=== PATIENT | female | born 1995 ===

== ENCOUNTER 2018-01-09 11:46 | Emergency (ER) | payer OTHER ==
[2018-01-09 12:19] VITALS: RESP 20
--- NOTE | 2018-01-09 12:50 | C.PDOC ---
History Of Present Illness 22 year old female presents to the ER with a complaint of recurring right sided lower back pain for one week with radiation to the right groin. Patient is s/p outpatient US with PMD, patient states "he saw stones in my kidney" and referred him to the ER for CT. Patient reports she had similar symptoms on 12/02 that resolved on their own. Denies UTI symptoms or other associated symptoms. RECUR R LOWER BACK PAIN X 1 WEEK. RADIATION R GROIN. S/P OUTPT US W PMD, "HE SAW STONES IN MY KIDNEY" REFERRED TO ER FOR CT. NO UTI SX. SIM SX 12/02 BUT RESOLVED. NO OTHER ASSOC SX EXAM MILD DIST NONTOXIC ABD NEG BACK +SPASM W LOCAL TEND R LOWER BACK. NO CVAT. AROM WO DIFF/ NEURO INTACT SKIN NEG REMAINDER NEG Time Seen by Provider: 01/09/18 12:33 Chief Complaint (Nursing): Back Pain History Per: Patient History/Exam Limitations: no limitations Onset/Duration Of Symptoms: Days Current Symptoms Are (Timing): Still Present Quality Of Discomfort: Unable To Describe Previous Symptoms: Other (Similar symptoms on 12/02/17) Associated Symptoms: None Exacerbating Factor(s): Nothing Recent travel outside of the [place]: No Past Medical History Reviewed: Historical Data, Nursing Documentation, Vital Signs Vital Signs: Last Vital Signs Temp 98 F 01/09/18 12:18 Pulse 82 01/09/18 12:18 Resp 20 01/09/18 12:18 BP 114/73 01/09/18 12:18 Pulse Ox 97 01/09/18 14:17 Family History: States: Unknown Family Hx - Social History Hx Alcohol Use: Yes Hx Substance Use: No - Immunization History Hx Tetanus Toxoid Vaccination: No Hx Influenza Vaccination: Yes Hx Pneumococcal Vaccination: No Review Of Systems Genitourinary: Positive for: Other (right groin pain). Negative for: Dysuria, Frequency, Hematuria Musculoskeletal: Positive for: Back Pain Neurological: Negative for: Weakness, Numbness Physical Exam - Physical Exam Appears: Non-toxic, Other (Mild distress) Skin: Normal Color, Warm, Dry Head: Atraumatic, Normacephalic Eye(s): bilateral: Normal Inspection Chest: Symmetrical, No Tenderness Cardiovascular: Rhythm Regular Respiratory: Normal Breath Sounds, No Rales, No Rhonchi, No Wheezing Gastrointestinal/Abdominal: Soft, No Tenderness Back: No CVA Tenderness, Muscle Spasm (Right lower back), Paraspinal Tenderness (Right lumbar), Other (ROM without difficulty) Extremity: Normal ROM (x4) Neurological/Psych: Oriented x3, Normal Speech, Normal Motor, Normal Sensation Gait: Steady ED Course And Treatment O2 Sat by Pulse Oximetry: 97 (room air) Pulse Ox Interpretation: Normal - CT Scan/US CT abd/pel Other Rad Studies (CT/US): Read By Radiologist, Radiology Report Reviewed CT/US Interpretation: PROCEDURE: CT Abdomen and Pelvis without Oral or IV contrast. HISTORY: r back/groin pain. COMPARISON: None available. TECHNIQUE : Contiguous axial images of the abdomen and pelvis. No oral or IV contrast administered. Coronal and Sagittal reformats generated and reviewed. Radiation dose: Total exam DLP = 515.36 mGy-cm. This CT exam was performed using one or more of the following dose reduction techniques: Automated exposure control, adjustment of the mA and/or kV according to patient size, and/or use of iterative reconstruction technique. FINDINGS: There is limited evaluation of the solid organs without the administration of IV contrast. LOWER THORAX: No visible consolidation, pleural effusion, or pneumothorax. LIVER: Unremarkable unenhanced appearance. GALLBLADDER AND BILE DUCTS: Unremarkable unenhanced appearance. PANCREAS: Unremarkable unenhanced appearance. SPLEEN: Unremarkable unenhanced appearance. ADRENALS: Unremarkable unenhanced appearance. KIDNEYS AND URETERS: No hydronephrosis or obstructing renal calculus. BLADDER: Under distention of the urinary bladder limits evaluation. REPRODUCTIVE: Uterus is present. APPENDIX: The appendix appears within normal limits of caliber. No secondary signs of acute appendicitis. BOWEL: The stomach is nondistended. Lack of oral contrast limits evaluation for bowel pathology. No evidence of bowel obstruction. Please note large bowel resides within the left abdomen and small bowel within the right abdomen; overall appearance consistent with malrotation. PERITONEUM: No significant free fluid. No definite free air. LYMPH NODES: No bulky lymphadenopathy identified. VASCULATURE: No aortic aneurysm. BONES: Mild scoliosis convex to the left, possibly positional. OTHER FINDINGS: Small fat containing umbilical hernia. IMPRESSION: No acute findings identified. Please note large bowel resides within the left abdomen and small bowel within the right abdomen; overall appearance consistent with malrotation. Medical Decision Making Medical Decision Making: Plan: * CT abd/pel * Urinalysis * Motrin Disposition - Disposition Referrals: YOUR,PMD [Other] Disposition: HOME/ ROUTINE Disposition Time: 14:20 Condition: IMPROVED Prescriptions: Cyclobenzaprine [Flexeril] 10 mg PO TID #15 tab Dexamethasone [Decadron] 12 mg PO ONCE #3 tab Gabapentin [Neurontin] 300 mg PO TID #30 cap Ibuprofen [Motrin] 600 mg PO Q6 #30 tab Instructions: Acute Low Back Pain (ED) Forms: [facility] (Swedish), Work Excuse - Clinical Impression Clinical Impression: Low back pain - Scribe Statement The provider has reviewed the documentation as recorded by the Scribe Nando Montiel All medical record entries made by the Scribe were at my direction and personally dictated by me. I have reviewed the chart and agree that the record accurately reflects my personal performance of the history, physical exam, medical decision making, and the department course for this patient. I have also personally directed, reviewed, and agree with the discharge instructions and disposition.
[2018-01-09 13:27] LABS: SQUAMOUS EPITHIAL 1 /hpf (0-5); URINE BILIRUBIN NEGATIVE (NEGATIVE); URINE BLOOD NEGATIVE (NEGATIVE); URINE CLARITY Clear (Clear); URINE COLOR Yellow (YELLOW); URINE GLUCOSE (UA) NORMAL (Normal); URINE LEUKOCYTE ESTERASE NEG Leu/uL (Negative); URINE NITRATE NEGATIVE (NEGATIVE); URINE PROTEIN NEGATIVE (NEGATIVE); URINE UROBILINOGEN NORMAL mg/dL (0.2-1.0)
--- NOTE | 2018-01-09 14:02 | CT ---
PROCEDURE: CT Abdomen and Pelvis without Oral or IV contrast. HISTORY: r back/groin pain COMPARISON: None available TECHNIQUE: Contiguous axial images of the abdomen and pelvis. No oral or IV contrast administered. Coronal and Sagittal reformats generated and reviewed. Radiation dose: Total exam DLP = 515.36 mGy-cm. This CT exam was performed using one or more of the following dose reduction techniques: Automated exposure control, adjustment of the mA and/or kV according to patient size, and/or use of iterative reconstruction technique. FINDINGS: There is limited evaluation of the solid organs without the administration of IV contrast. LOWER THORAX: No visible consolidation, pleural effusion, or pneumothorax. LIVER: Unremarkable unenhanced appearance. GALLBLADDER AND BILE DUCTS: Unremarkable unenhanced appearance. PANCREAS: Unremarkable unenhanced appearance. SPLEEN: Unremarkable unenhanced appearance. ADRENALS: Unremarkable unenhanced appearance. KIDNEYS AND URETERS: No hydronephrosis or obstructing renal calculus. BLADDER: Under distention of the urinary bladder limits evaluation. REPRODUCTIVE: Uterus is present. APPENDIX: The appendix appears within normal limits of caliber. No secondary signs of acute appendicitis. BOWEL: The stomach is nondistended. Lack of oral contrast limits evaluation for bowel pathology. No evidence of bowel obstruction. Please note large bowel resides within the left abdomen and small bowel within the right abdomen; overall appearance consistent with malrotation. PERITONEUM: No significant free fluid. No definite free air. LYMPH NODES: No bulky lymphadenopathy identified. VASCULATURE: No aortic aneurysm. BONES: Mild scoliosis convex to the left, possibly positional. OTHER FINDINGS: Small fat containing umbilical hernia. IMPRESSION: No acute findings identified. Please note large bowel resides within the left abdomen and small bowel within the right abdomen; overall appearance consistent with malrotation.
[2018-01-09 14:37] VITALS: BP 113/76; PULSE 76; TEMP 98.3; O2SAT 100
== END 2018-01-09 14:47 | disposition home or self-care (01) ==
LOC: C.ER 11:46
DX: M54.5 Low back pain (principal)